=== PATIENT | male | born 1970 | race Asian ===

== ENCOUNTER 2017-12-26 06:50 | Outpatient (CLI) | payer OTHER ==
[~2017-12-26 06:50] MED LIST: ALLEGRA ALLERG180 MG PO; CATAFLAM50 MG PO; CEPHALEXIN500 MG PO
== END 2017-12-26 06:54 | disposition home or self-care (01) ==
LOC: SONOGRAMA 06:50
DX: E04.1 Nontoxic single thyroid nodule (principal)